=== PATIENT | female | born 1980 | race Caucasian/White ===

== ENCOUNTER 2019-02-24 08:08 | Day surgery (SDC) | payer OTHER ==
[2019-02-24 09:22] LABS: INTERNATIONAL RATION (INR) 1.01; PARTIAL THROMBOPLASTIN TIME 31.8 SEC (23.5-35.8); PROTHROMBIN TIME 13.3 SEC (11.4-15.4)
[2019-02-24 11:27] LABS: APPEARANCE ALL TUBES CLEAR; COLOR ALL TUBES COLORLESS; CSF TOTAL VOLUME 10.5 CC; CSF TUBE NUMBER 3; VOLUME TUBE 4 2.5 CC
[2019-02-24 11:28] LABS: RED BLOOD CELL,CSF 6 /uL (0-10)
[2019-02-24 11:29] LABS: WHITE BLOOD CELL,CSF 1 /uL (0-5)
[2019-02-24 11:56] LABS: GLUCOSE,CSF 50 mg/dL (40-70); PROTEIN,CSF 31 mg/dL (12-60)
[2019-02-24 15:07] VITALS: BP 124/74
--- NOTE | 2019-02-24 17:29 | RADIOLOGY REPORT (SQ) ---
EXAM DESCRIPTION: LUMBAR PUNCTURE; FLUORO/NEEDLE PLACEMENT/SPINE COMPLETED DATE/TIME: 02/24/2019 10:55 am REASON FOR STUDY: MS G35 MULTIPLE SCLEROSIS COMPARISON: None. FLUOROSCOPY TIME: 0.3 minutes. 2 images submitted to PACS. TECHNIQUE: Integrated into the Technique. LIMITATIONS: None. PROCEDURE: After written consent and assessment were obtained, the patient was brought into the fluo roscopy room and placed prone on the table. The patient's lower back was then prepped in in the usua l sterile fashion and an entry site was selected with fluoroscopy. The entry site was next anesthetiz ed with 1% lidocaine. A 20 gauge needle was advanced through the skin and into the thecal sac at the level of L2-L3. After approximately 10.5 mL was drained, the needle was removed and a sterile bandage was placed of the site. Specimens were sent to the lab for testing. A fluoroscopic spot image was saved to PACS confirming level access. FINDINGS: Clear CSF IMPRESSION: Lumbar puncture under fluoroscopy. No immediate complication. COMMENT: Patient medication list reviewed: Yes- Quality ID# [id number]:Eligible professional attests to doc umenting in the medical record they obtained, updated, or reviewed the patient's current medications. . Quality ID 145: Final reports for procedures using fluoroscopy that document radiation exposure kailash darek, or exposure time and number of fluorographic images (if radiation exposure indices are not avail able) TECHNICAL DOCUMENTATION: JOB ID: [id number] [employer]- All Rights Reserved Reading location - IP/workstation name: [email or web address]
[2019-02-27 15:36] LABS: ALBUMIN CSF 9 mg/dL (11-48); CSF IGG INDEX 0.5 (0.0-0.7); IGG SYNTHESIS RATE CSF -3.3 mg/day (-9.9 TO +3); IGG/ALBUMIN RATIO CSF 0.11 (0.00-0.25); IMMUNOGLOBULIN G SERUM 944 mg/dL (700-1600)
[2019-02-28 07:02] LABS: ALBUMIN SERUM 4.2 g/dL (3.5-5.5); CSF/SERUM ALBUMIN INDEX 2 (0-8)
== END 2019-02-24 13:05 | disposition home or self-care (01) ==
LOC: RAD 08:08
PROVIDERS: ATTEND Specialist
DX: G35 Multiple sclerosis (principal)
CPT/HCPCS: 36415; 62328; 77003; 82784; 82945; 83916; 84157; 85610; 85730; 87070; 87205; 89050